=== PATIENT | male | born 1955 | race Caucasian/White ===

== ENCOUNTER 2016-09-29 10:03 | Inpatient (IN) | payer OTHER ==
[~2016-09-29] VITALS: Ht 172.7 cm; Wt 84.5 kg
[~2016-09-29 10:03] MED LIST: RIFAX550 PO; TERA2 PO
[2016-09-29] MEDS ORDERED: SODIUM CHLORIDE 0.9% 1,000 ML IV ONE (10:45)
[2016-09-29] MEDS ORDERED: ONDANSETRON HCL 4 MG/2 ML VIAL IVP ONE (10:45)
[2016-09-29] MEDS ORDERED: KETOROLAC TROMETHAMINE 30 MG/ML VIAL IVP ONE (10:45)
[2016-09-29 10:59] LABS: APPEARANCE,URINE CLEAR (CLEAR); GLUCOSE, URINE (UA) NEGATIVE (NEGATIVE); KETONES,URINE TRACE mg/dL (NEGATIVE); LEUKOCYTE ESTERASE ,URINE SMALL (NEGATIVE); OCCULT BLOOD,URINE NEGATIVE (NEGATIVE); PROTEIN,URINE TRACE (NEGATIVE)
[2016-09-29 11:29] LABS: RBC,URINE 0-2 /HPF (0-2); SQUAMOUS EPITHELIAL CELL,UR Few /LPF (None Seen); WBC,URINE 0-2 /HPF (0-5)
[2016-09-29 11:31] LABS: BASOPHILS % (AUTO) 0.1 % (0.0-2.0); EOSINOPHILS % (AUTO) 0.3 % (1.0-6.0); HEMATOCRIT 32.9 % (41-53); HEMOGLOBIN 10.6 g/dL (13.5-17.5); LYMPHOCYTES # (AUTO) 3.3 K/uL (1.0-4.8); LYMPHOCYTES % (AUTO) 36.3 % (22.0-44.0); MEAN CORPUSCULAR HEMOGLOBIN 31.1 pg (26.0-34.0); MEAN CORPUSCULAR HGB CONC 32.3 G/dL (31.0-37.0); MEAN CORPUSCULAR VOLUME 96 fL (80-100); MONOCYTES # (AUTO) 1.3 K/uL (0.1-1.0); MONOCYTES % (AUTO) 14.2 % (2.0-9.0); NEUTROPHILS # (AUTO) 4.4 K/uL (1.8-7.7); NEUTROPHILS % (AUTO) 49.1 % (40.0-70.0); PLATELET COUNT (AUTO) 126 K/uL (150-450); RED BLOOD CELL COUNT(AUTO) 3.42 MIL/uL (4.50-5.90); RED CELL DISTRIBUTION WIDTH 18.5 % (11.5-14.5)
[2016-09-29 11:32] LABS: RBC MORPHOLOGY COMMENT ABNORMAL RBC MORPH
[2016-09-29 11:34] LABS: INR 1.4 (0.9-1.1); PROTHROMBIN TIME 14.4 SEC (9.4-11.6)
[2016-09-29 11:42] LABS: ALANINE AMINOTRANSFERASE 35 U/L (12-78); ANION GAP 9 mmol/L (8-16); ASPARTATE AMINOTRANSFERASE 119 U/L (15-37); BILIRUBIN,TOTAL 5.3 mg/dL (0.1-1.0); CALCIUM, TOTAL 7.3 mg/dL (8.8-10.5); CARBON DIOXIDE 25 mmol/L (22-29); CHLORIDE 99 mmol/L (98-107); CREATININE 0.75 mg/dL (0.60-1.30); GLOMERULAR FILTR. RATE CALC > 60 mL/min (>60); LACTIC ACID 1.4 mmol/L (0.4-2.0); SODIUM SERUM 133 mmol/L (136-145); TOTAL PROTEIN, SERUM 6.8 g/dL (6.4-8.2); UREA NITROGEN, BLOOD 6 mg/dL (7-18)
[2016-09-29 11:45] LABS: POTASSIUM 2.9 mmol/L (3.5-5.1)
[2016-09-29 12:15] LABS: PROCALCITONIN (PCT) 0.32 ng/mL (<0.50)
[2016-09-29] MEDS ORDERED: OSELTAMIVIR PHOSPHATE 75 MG CAPSULE PO ONE (12:30)
[2016-09-29] MEDS ORDERED: LACTULOSE 20 GM/30 ML SOLUTION UDCUP PO ONE (12:30)
[2016-09-29] MEDS ORDERED: MORPHINE SULFATE 2 MG/ML SYRINGE IVP ONE (12:30)
[2016-09-29] MEDS: POTASSIUM CHL 10 MEQ/WATER 50 ML IV SCH ×4 (12:45→17:10)
[2016-09-29] MEDS ORDERED: ONDANSETRON HCL 4 MG/2 ML VIAL IVP PRN ×2 (13:30→16:15)
[2016-09-29 14:25] LABS: INFLUENZA TYPE B NEGATIVE FOR TYPE B (NEGATIVE)
[2016-09-29] MEDS ORDERED: BISACODYL 10 MG RECTAL RECTAL SUPPOSITORY PR PRN (16:15)
[2016-09-29] MEDS ORDERED: MAGNESIUM HYDROXIDE SUSPENSION 30 ML UDCUP PO PRN (16:15)
[2016-09-29] MEDS ORDERED: ZOLPIDEM TARTRATE 5 MG TABLET PO PRN (16:15)
[2016-09-29] MEDS ORDERED: LORazepam 2 MG/ML VIAL IVP PRN (16:15)
[2016-09-29] MEDS ORDERED: ALBUTEROL SULFATE 2.5 MG/0.5 ML NEB SOLUTION NEB PRN (16:15)
[2016-09-29] MEDS ORDERED: ACETAMINOPHEN 325 MG TABLET PO PRN (16:15)
[2016-09-29] MEDS ORDERED: IPRATROPIUM BROMIDE 0.5 MG/2.5 ML NEB SOLUTION NEB PRN (16:15)
[2016-09-29 16:38] VITALS: BP 147/86
[2016-09-29] MEDS: MORPHINE SULFATE 2 MG/ML SYRINGE IVP PRN ×2 (17:10→20:58)
[2016-09-29] MEDS: ChlordiazePOXIDE HCL 25 MG CAPSULE PO SCH ×2 (18:37→23:33)
[2016-09-29 19:58] VITALS: BP 130/72
[2016-09-29] MEDS: DOCUSATE SODIUM 100 MG CAPSULE PO SCH (20:52)
[2016-09-29 23:14] VITALS: BP 141/79
[2016-09-29] MEDS ORDERED: POTASSIUM CHLORIDE 20 MEQ ER TABLET PO ONE (23:45)
[2016-09-30] MEDS: MORPHINE SULFATE 2 MG/ML SYRINGE IVP PRN ×4 (00:21→12:17)
[2016-09-30 04:33] VITALS: BP 134/76
[2016-09-30] MEDS: ChlordiazePOXIDE HCL 25 MG CAPSULE PO SCH ×2 (05:08→12:16)
[2016-09-30 07:10] VITALS: BP 163/92
[2016-09-30] MEDS: DOCUSATE SODIUM 100 MG CAPSULE PO SCH ×3 (09:00→20:45)
[2016-09-30] MEDS: PANTOPRAZOLE SODIUM 40 MG/VIAL IVP SCH (09:14)
[2016-09-30] MEDS: MULTIVITAMINS, THERAPEUTIC TABLET PO SCH (09:15)
[2016-09-30] MEDS: FOLIC ACID 1 MG TABLET PO SCH (09:15)
[2016-09-30 12:04] VITALS: BP 129/78
[2016-09-30] MEDS: THIAMINE HCL 100 MG TABLET PO SCH (12:16)
[2016-09-30 14:50] VITALS: BP 150/63
[2016-09-30 18:02] LABS: APPEARANCE,URINE CLEAR (CLEAR); GLUCOSE, URINE (UA) NEGATIVE (NEGATIVE); KETONES,URINE TRACE mg/dL (NEGATIVE); LEUKOCYTE ESTERASE ,URINE SMALL (NEGATIVE); OCCULT BLOOD,URINE NEGATIVE (NEGATIVE); PROTEIN,URINE NEGATIVE (NEGATIVE)
[2016-09-30 18:15] LABS: ADD UA MICROSCOPIC YES
[2016-09-30 18:20] LABS: RBC,URINE 0-2 /HPF (0-2); SQUAMOUS EPITHELIAL CELL,UR Few /LPF (None Seen)
[2016-09-30 19:43] VITALS: BP 145/69
[2016-09-30] MEDS: HYDROCODONE/ACETAMINOPHEN 5-325 MG TABLET PO PRN (20:42)
[2016-09-30 23:22] VITALS: BP 127/70
[2016-10-01 04:36] VITALS: BP 118/59
[2016-10-01 07:04] VITALS: BP_SYST 131; BP_SYST 161; BP_DIAS 66
[2016-10-01] MEDS: FOLIC ACID 1 MG TABLET PO SCH (10:23)
[2016-10-01] MEDS: THIAMINE HCL 100 MG TABLET PO SCH (10:23)
[2016-10-01] MEDS: MULTIVITAMINS, THERAPEUTIC TABLET PO SCH (10:24)
[2016-10-01] MEDS: HYDROCODONE/ACETAMINOPHEN 5-325 MG TABLET PO PRN ×3 (10:25→21:08)
[2016-10-01] MEDS: PANTOPRAZOLE SODIUM 40 MG/VIAL IVP SCH (11:04)
[2016-10-01 11:16] VITALS: BP 110/62
[2016-10-01 11:50] LABS: HEMATOCRIT 30.8 % (41-53); HEMOGLOBIN 10.1 g/dL (13.5-17.5); MEAN CORPUSCULAR HEMOGLOBIN 31.6 pg (26.0-34.0); MEAN CORPUSCULAR HGB CONC 32.7 G/dL (31.0-37.0); MEAN CORPUSCULAR VOLUME 97 fL (80-100); PLATELET COUNT (AUTO) 121 K/uL (150-450); RED BLOOD CELL COUNT(AUTO) 3.19 MIL/uL (4.50-5.90); RED CELL DISTRIBUTION WIDTH 18.4 % (11.5-14.5); WHITE BLOOD COUNT (AUTO) 8.9 K/uL (4.5-11.0)
[2016-10-01 12:07] LABS: ALANINE AMINOTRANSFERASE 37 U/L (12-78); ANION GAP 7 mmol/L (8-16); ASPARTATE AMINOTRANSFERASE 123 U/L (15-37); BILIRUBIN,TOTAL 6.2 mg/dL (0.1-1.0); CALCIUM, TOTAL 8.1 mg/dL (8.8-10.5); CARBON DIOXIDE 24 mmol/L (22-29); CHLORIDE 99 mmol/L (98-107); CREATININE 0.71 mg/dL (0.60-1.30); GLOMERULAR FILTR. RATE CALC > 60 mL/min (>60); POTASSIUM 3.3 mmol/L (3.5-5.1); SODIUM SERUM 130 mmol/L (136-145); TOTAL PROTEIN, SERUM 6.6 g/dL (6.4-8.2); UREA NITROGEN, BLOOD 7 mg/dL (7-18)
[2016-10-01] MEDS ORDERED: MAGNESIUM SULFATE 4 GM/WATER 100 ML IV PRN (12:30)
[2016-10-01] MEDS ORDERED: MAGNESIUM SULFATE 2 GM in DEXTROSE 5%-WATER 50 ML IV PRN (12:30)
[2016-10-01 12:33] LABS: BAND NEUTROPHILS % (MANUAL) 5 % (1-5); LYMPHOCYTES % (MANUAL) 20 % (22-44); TOTAL CELLS COUNTED 100
[2016-10-01 12:35] LABS: RBC MORPHOLOGY COMMENT ABNORMAL RBC MORPH
[2016-10-01] MEDS ORDERED: IOVERSOL 350 MG/ML 100 ML VIAL ONE ×2 (12:40→17:51)
[2016-10-01] MEDS ORDERED: SODIUM CHLORIDE 0.9% 100 ML ONE ×2 (12:40→17:52)
[2016-10-01] MEDS ORDERED: BARIUM SULFATE 0.1% SUSPENSION 450 ML BOTTLE ONE (12:40)
[2016-10-01] MEDS ORDERED: CefTRIAXone 1 GM/DEXTROSE 50 ML IV SCH (13:00)
[2016-10-01] MEDS ORDERED: AZITHROMYCIN 250 MG in SODIUM CHLORIDE 0.9% 150 ML IV SCH (14:00)
[2016-10-01] MEDS: LACTULOSE 20 GM/30 ML SOLUTION UDCUP PO SCH ×3 (14:50→21:07)
[2016-10-01] MEDS: LEVOFLOXACIN 250 MG TABLET PO SCH (14:51)
[2016-10-01 15:36] VITALS: BP 123/71
[2016-10-01] MEDS: POTASSIUM CHLORIDE 20 MEQ ER TABLET PO PRN (15:56)
[2016-10-01] MEDS ORDERED: IOVERSOL 350 MG/ML 50 ML VIAL ONE (17:52)
[2016-10-01 19:59] VITALS: BP 110/77
[2016-10-01] MEDS: DOCUSATE SODIUM 100 MG CAPSULE PO SCH (21:00)
[2016-10-01] MEDS: RIFAXIMIN 550 MG TABLET PO SCH (21:07)
[2016-10-02 00:24] VITALS: BP 113/67
[2016-10-02 03:29] VITALS: BP 110/59
[2016-10-02] MEDS: PANTOPRAZOLE SODIUM 40 MG/VIAL IVP SCH (07:59)
[2016-10-02] MEDS: LACTULOSE 20 GM/30 ML SOLUTION UDCUP PO SCH ×4 (07:59→20:31)
[2016-10-02] MEDS: MULTIVITAMINS, THERAPEUTIC TABLET PO SCH (07:59)
[2016-10-02] MEDS: FOLIC ACID 1 MG TABLET PO SCH (07:59)
[2016-10-02] MEDS: THIAMINE HCL 100 MG TABLET PO SCH (08:00)
[2016-10-02] MEDS: LEVOFLOXACIN 250 MG TABLET PO SCH (08:00)
[2016-10-02] MEDS: DOCUSATE SODIUM 100 MG CAPSULE PO SCH ×2 (08:00→20:31)
[2016-10-02] MEDS: RIFAXIMIN 550 MG TABLET PO SCH ×2 (08:00→20:30)
[2016-10-02] MEDS: HYDROCODONE/ACETAMINOPHEN 5-325 MG TABLET PO PRN ×3 (08:05→20:31)
[2016-10-02 11:16] VITALS: BP 91/62
[2016-10-02] MEDS: MAGNESIUM OXIDE 400 MG TABLET PO PRN (12:53)
[2016-10-02 15:15] VITALS: BP 101/60
[2016-10-02 15:20] LABS: HEMOGLOBIN 10.4 g/dL (13.5-17.5); MEAN CORPUSCULAR HEMOGLOBIN 31.8 pg (26.0-34.0); MEAN CORPUSCULAR HGB CONC 32.6 G/dL (31.0-37.0); MEAN CORPUSCULAR VOLUME 98 fL (80-100); PLATELET COUNT (AUTO) 133 K/uL (150-450); RED BLOOD CELL COUNT(AUTO) 3.28 MIL/uL (4.50-5.90); RED CELL DISTRIBUTION WIDTH 19.1 % (11.5-14.5); WHITE BLOOD COUNT (AUTO) 8.1 K/uL (4.5-11.0)
[2016-10-02 15:31] LABS: ANION GAP 7 mmol/L (8-16); CALCIUM, TOTAL 8.2 mg/dL (8.8-10.5); CARBON DIOXIDE 26 mmol/L (22-29); CHLORIDE 102 mmol/L (98-107); CREATININE 0.88 mg/dL (0.60-1.30); GLOMERULAR FILTR. RATE CALC > 60 mL/min (>60); POTASSIUM 3.4 mmol/L (3.5-5.1); SODIUM SERUM 135 mmol/L (136-145); UREA NITROGEN, BLOOD 7 mg/dL (7-18)
[2016-10-02 15:40] LABS: BAND NEUTROPHILS % (MANUAL) 14 % (1-5); LYMPHOCYTES % (MANUAL) 30 % (22-44); REACTIVE LYMPHOCYTES 1 % (0-0); TOTAL CELLS COUNTED 100
[2016-10-02 15:41] LABS: RBC MORPHOLOGY COMMENT ABNORMAL RBC MORPH
[2016-10-02 15:43] LABS: ALANINE AMINOTRANSFERASE 40 U/L (12-78); ASPARTATE AMINOTRANSFERASE 127 U/L (15-37); BILIRUBIN,TOTAL 6.5 mg/dL (0.1-1.0); TOTAL PROTEIN, SERUM 6.6 g/dL (6.4-8.2)
[2016-10-02] MEDS: POTASSIUM CHLORIDE 20 MEQ ER TABLET PO PRN (18:10)
[2016-10-02 20:18] VITALS: BP 101/66
[2016-10-02] MEDS: OSELTAMIVIR PHOSPHATE 75 MG CAPSULE PO SCH (20:30)
[2016-10-03] VITALS (7 sets, daily range): BP systolic 101–119; BP diastolic 61–74
[2016-10-03] MEDS: HYDROCODONE/ACETAMINOPHEN 5-325 MG TABLET PO PRN ×3 (06:45→20:25)
[2016-10-03 07:11] LABS: HEMATOCRIT 30.2 % (41-53); MEAN CORPUSCULAR VOLUME 97 fL (80-100); PLATELET COUNT (AUTO) 136 K/uL (150-450); RED BLOOD CELL COUNT(AUTO) 3.11 MIL/uL (4.50-5.90); RED CELL DISTRIBUTION WIDTH 18.8 % (11.5-14.5); WHITE BLOOD COUNT (AUTO) 7.3 K/uL (4.5-11.0)
[2016-10-03 07:50] LABS: ALANINE AMINOTRANSFERASE 35 U/L (12-78); ALBUMIN 1.9 g/dL (3.4-5.0); ANION GAP 5 mmol/L (8-16); ASPARTATE AMINOTRANSFERASE 113 U/L (15-37); BILIRUBIN,TOTAL 4.9 mg/dL (0.1-1.0); CALCIUM, TOTAL 8.3 mg/dL (8.8-10.5); CARBON DIOXIDE 27 mmol/L (22-29); CHLORIDE 106 mmol/L (98-107); CREATININE 0.86 mg/dL (0.60-1.30); GLOMERULAR FILTR. RATE CALC > 60 mL/min (>60); POTASSIUM 3.9 mmol/L (3.5-5.1); SODIUM SERUM 138 mmol/L (136-145); TOTAL PROTEIN, SERUM 6.3 g/dL (6.4-8.2); UREA NITROGEN, BLOOD 8 mg/dL (7-18)
[2016-10-03] MEDS: MULTIVITAMINS, THERAPEUTIC TABLET PO SCH (08:24)
[2016-10-03] MEDS: PANTOPRAZOLE SODIUM 40 MG/VIAL IVP SCH (08:24)
[2016-10-03] MEDS: THIAMINE HCL 100 MG TABLET PO SCH (08:24)
[2016-10-03] MEDS: RIFAXIMIN 550 MG TABLET PO SCH ×2 (08:24→20:25)
[2016-10-03] MEDS: FOLIC ACID 1 MG TABLET PO SCH (08:24)
[2016-10-03] MEDS: DOCUSATE SODIUM 100 MG CAPSULE PO SCH ×2 (08:24→20:26)
[2016-10-03] MEDS: LACTULOSE 20 GM/30 ML SOLUTION UDCUP PO SCH ×4 (08:25→20:25)
[2016-10-03] MEDS: LEVOFLOXACIN 250 MG TABLET PO SCH (08:25)
[2016-10-03] MEDS: OSELTAMIVIR PHOSPHATE 75 MG CAPSULE PO SCH ×2 (12:15→20:25)
[2016-10-03 12:26] LABS: BAND NEUTROPHILS % (MANUAL) 1 % (1-5); LYMPHOCYTES % (MANUAL) 27 % (22-44); RBC MORPHOLOGY COMMENT ABNORMAL R; TOTAL CELLS COUNTED 100
[2016-10-03] MEDS: MAGNESIUM OXIDE 400 MG TABLET PO PRN (20:25)
[2016-10-04 02:21] LABS: HEPATITIS Bs ANTIGEN SCREEN P Negative (Negative); HEPATITIS C AB SCREEN >11.0 s/co ratio (0.0-0.9)
[2016-10-04 05:05] VITALS: BP 101/66
[2016-10-04 06:28] LABS: HEMATOCRIT 29.6 % (41-53); HEMOGLOBIN 9.6 g/dL (13.5-17.5); MEAN CORPUSCULAR HEMOGLOBIN 31.6 pg (26.0-34.0); MEAN CORPUSCULAR HGB CONC 32.3 G/dL (31.0-37.0); MEAN CORPUSCULAR VOLUME 98 fL (80-100); PLATELET COUNT (AUTO) 143 K/uL (150-450); RED BLOOD CELL COUNT(AUTO) 3.03 MIL/uL (4.50-5.90); RED CELL DISTRIBUTION WIDTH 19.3 % (11.5-14.5); WHITE BLOOD COUNT (AUTO) 7.2 K/uL (4.5-11.0)
[2016-10-04 07:07] LABS: ALANINE AMINOTRANSFERASE 32 U/L (12-78); ALBUMIN 1.8 g/dL (3.4-5.0); ANION GAP 9 mmol/L (8-16); ASPARTATE AMINOTRANSFERASE 98 U/L (15-37); BILIRUBIN,TOTAL 3.8 mg/dL (0.1-1.0); CARBON DIOXIDE 24 mmol/L (22-29); CHLORIDE 102 mmol/L (98-107); CREATININE 0.86 mg/dL (0.60-1.30); GLOMERULAR FILTR. RATE CALC > 60 mL/min (>60); POTASSIUM 3.8 mmol/L (3.5-5.1); SODIUM SERUM 135 mmol/L (136-145); UREA NITROGEN, BLOOD 7 mg/dL (7-18)
[2016-10-04 07:29] VITALS: BP 93/50
[2016-10-04] MEDS: FOLIC ACID 1 MG TABLET PO SCH (08:16)
[2016-10-04] MEDS: LACTULOSE 20 GM/30 ML SOLUTION UDCUP PO SCH ×3 (08:16→16:42)
[2016-10-04] MEDS: RIFAXIMIN 550 MG TABLET PO SCH (08:16)
[2016-10-04] MEDS: PANTOPRAZOLE SODIUM 40 MG/VIAL IVP SCH (08:16)
[2016-10-04] MEDS: HYDROCODONE/ACETAMINOPHEN 5-325 MG TABLET PO PRN ×2 (08:16→16:47)
[2016-10-04] MEDS: LEVOFLOXACIN 250 MG TABLET PO SCH (08:16)
[2016-10-04] MEDS: MULTIVITAMINS, THERAPEUTIC TABLET PO SCH (08:16)
[2016-10-04] MEDS: THIAMINE HCL 100 MG TABLET PO SCH (08:16)
[2016-10-04] MEDS: DOCUSATE SODIUM 100 MG CAPSULE PO SCH (08:17)
[2016-10-04 10:09] LABS: BAND NEUTROPHILS % (MANUAL) 1 % (1-5); LYMPHOCYTES % (MANUAL) 26 % (22-44); TOTAL CELLS COUNTED 100
[2016-10-04 10:10] LABS: RBC MORPHOLOGY COMMENT ABNORMAL R
[2016-10-04 11:26] VITALS: BP 109/60
[2016-10-04 16:04] VITALS: BP 112/64
[2016-10-04] MEDS ORDERED: LACT30L PO (18:16)
[2016-10-04] MEDS ORDERED: LEVO250 PO (18:17)
== END 2016-10-04 18:50 | disposition home or self-care (01) | DRG 720 ==
LOC: EMS 10:05 → 6N 13:27 → UNDODISIN 14:12
PROVIDERS: ADMIT Hospitalist; ATTEND Hospitalist
DX: A41.9 Sepsis, unspecified organism (principal); E43 Unspecified severe protein-calorie malnutrition; K70.30 Alcoholic cirrhosis of liver without ascites; J18.9 Pneumonia, unspecified organism; I48.91 Unspecified atrial fibrillation; K72.90 Hepatic failure, unspecified without coma; K92.2 Gastrointestinal hemorrhage, unspecified; J44.9 Chronic obstructive pulmonary disease, unspecified; E78.00 Pure hypercholesterolemia, unspecified; I10 Essential (primary) hypertension; F17.210 Nicotine dependence, cigarettes, uncomplicated; E87.6 Hypokalemia; I25.10 Atherosclerotic heart disease of native coronary artery without angina pectoris; R79.1 Abnormal coagulation profile; N40.0 Benign prostatic hyperplasia without lower urinary tract symptoms; M19.90 Unspecified osteoarthritis, unspecified site; Z91.14 Patient's other noncompliance with medication regimen; Z79.899 Other long term (current) drug therapy; Z68.28 Body mass index [BMI] 28.0-28.9, adult; Z90.49 Acquired absence of other specified parts of digestive tract; Z98.890 Other specified postprocedural states; Z59.0 Homelessness; Z95.5 Presence of coronary angioplasty implant and graft; Z90.81 Acquired absence of spleen; Z86.718 Personal history of other venous thrombosis and embolism
CPT/HCPCS: 70450; 74177; 80074; 82105; 82271; 83605; 83735; 84132; 84145; 87040; 87086; 87804; 93005; 96361; 96374; 96375; 99285; C9113; J0456; J0696; J1885; J2270; J2405; J3475; J3480; J7030; J7050; J7060

== ENCOUNTER 2017-01-25 17:43 | Inpatient (IN) | payer OTHER ==
[~2017-01-25] VITALS: Ht 172.7 cm; Wt 84.6 kg
[~2017-01-25 17:43] MED LIST changes: +LACT30L PO; +LEVO250 PO
[2017-01-25 18:22] LABS: HEMATOCRIT 29.9 % (41-53); HEMOGLOBIN 9.9 g/dL (13.5-17.5); MEAN CORPUSCULAR HEMOGLOBIN 34.4 pg (26.0-34.0); MEAN CORPUSCULAR HGB CONC 33.1 G/dL (31.0-37.0); MEAN CORPUSCULAR VOLUME 104 fL (80-100); PLATELET COUNT (AUTO) 283 K/uL (150-450); RED BLOOD CELL COUNT(AUTO) 2.87 MIL/uL (4.50-5.90); RED CELL DISTRIBUTION WIDTH 18.6 % (11.5-14.5)
[2017-01-25 18:33] LABS: ANION GAP 10 mmol/L (8-16); CALCIUM, TOTAL 7.9 mg/dL (8.8-10.5); CARBON DIOXIDE 26 mmol/L (22-29); CHLORIDE 110 mmol/L (98-107); CREATININE 1.01 mg/dL (0.60-1.30); GLOMERULAR FILTR. RATE CALC > 60 mL/min (>60); POTASSIUM 3.5 mmol/L (3.5-5.1); SODIUM SERUM 146 mmol/L (136-145); UREA NITROGEN, BLOOD 9 mg/dL (7-18)
[2017-01-25 18:39] LABS: ALANINE AMINOTRANSFERASE 31 U/L (12-78); ALBUMIN 2.1 g/dL (3.4-5.0); ASPARTATE AMINOTRANSFERASE 55 U/L (15-37); BILIRUBIN,TOTAL 2.5 mg/dL (0.1-1.0); TOTAL PROTEIN, SERUM 7.9 g/dL (6.4-8.2)
[2017-01-25 18:59] LABS: EOSINOPHILS % (MANUAL) 3 % (1-6); LYMPHOCYTES % (MANUAL) 55 % (22-44); METAMYELOCYTES % 2 % (0-0); MYELOCYTES % 1 % (0-0); TOTAL CELLS COUNTED 100
[2017-01-25 19:00] LABS: RBC MORPHOLOGY COMMENT ABNORMAL R
[2017-01-25] MEDS ORDERED: MAGNESIUM SULFATE 2 GM, MVI, ADULT NO.1 WITH VIT K 10 ML, THIAMINE HCL 100 MG, FOLIC AC... IV ONE ×5 (21:00)
[2017-01-25] MEDS ORDERED: SODIUM CHLORIDE 0.9% 1,000 ML IV ONE (21:00)
[2017-01-25] MEDS ORDERED: FUROSEMIDE 40 MG/4 ML VIAL IVP ONE (21:45)
[2017-01-25] MEDS ORDERED: SPIRONOLACTONE 25 MG TABLET PO ONE (21:45)
[2017-01-25] MEDS ORDERED: LACTULOSE 20 GM/30 ML SOLUTION UDCUP PO ONE (22:45)
[2017-01-25] MEDS ORDERED: ACETAMINOPHEN 325 MG TABLET PO PRN ×2 (23:30)
[2017-01-25] MEDS ORDERED: MORPHINE SULFATE 2 MG/ML SYRINGE IVP PRN (23:30)
[2017-01-25] MEDS ORDERED: OxyCODONE HCL/ACETAMINOPHEN 5-325 MG TABLET PO PRN (23:30)
[2017-01-25] MEDS ORDERED: ONDANSETRON HCL 4 MG/2 ML VIAL IVP PRN ×2 (23:30)
[2017-01-25] MEDS ORDERED: ZOLPIDEM TARTRATE 5 MG TABLET PO PRN (23:30)
[2017-01-25] MEDS ORDERED: BISACODYL 10 MG RECTAL RECTAL SUPPOSITORY PR PRN ×2 (23:30)
[2017-01-25] MEDS ORDERED: IPRATROPIUM BROMIDE 0.5 MG/2.5 ML NEB SOLUTION NEB PRN ×2 (23:30)
[2017-01-25] MEDS ORDERED: MAGNESIUM HYDROXIDE SUSPENSION 30 ML UDCUP PO PRN ×2 (23:30)
[2017-01-25] MEDS ORDERED: ALBUTEROL SULFATE 2.5 MG/0.5 ML NEB SOLUTION NEB PRN ×2 (23:30)
[2017-01-26] VITALS (7 sets, daily range): BP systolic 103–126; BP diastolic 52–72
[2017-01-26] MEDS: HEPARIN SODIUM,PORCINE 5,000 UNITS/ML VIAL SQ SCH ×4 (01:35→23:53)
[2017-01-26] MEDS: HYDROCODONE/ACETAMINOPHEN 5-325 MG TABLET PO PRN (06:19)
[2017-01-26 07:06] LABS: HEMATOCRIT 24.8 % (41-53); HEMOGLOBIN 8.2 g/dL (13.5-17.5); MEAN CORPUSCULAR HGB CONC 33.3 G/dL (31.0-37.0); MEAN CORPUSCULAR VOLUME 102 fL (80-100); PLATELET COUNT (AUTO) 241 K/uL (150-450); RED BLOOD CELL COUNT(AUTO) 2.43 MIL/uL (4.50-5.90); RED CELL DISTRIBUTION WIDTH 18.1 % (11.5-14.5)
[2017-01-26 07:11] LABS: ALANINE AMINOTRANSFERASE 23 U/L (12-78); ALBUMIN 1.7 g/dL (3.4-5.0); ANION GAP 10 mmol/L (8-16); ASPARTATE AMINOTRANSFERASE 47 U/L (15-37); BILIRUBIN,TOTAL 2.3 mg/dL (0.1-1.0); CALCIUM, TOTAL 7.3 mg/dL (8.8-10.5); CARBON DIOXIDE 24 mmol/L (22-29); CHLORIDE 110 mmol/L (98-107); CREATININE 0.69 mg/dL (0.60-1.30); GLOMERULAR FILTR. RATE CALC > 60 mL/min (>60); SODIUM SERUM 144 mmol/L (136-145); TOTAL PROTEIN, SERUM 6.4 g/dL (6.4-8.2); UREA NITROGEN, BLOOD 7 mg/dL (7-18)
[2017-01-26 07:40] LABS: POTASSIUM 2.9 mmol/L (3.5-5.1)
[2017-01-26] MEDS: DOCUSATE SODIUM 100 MG CAPSULE PO SCH ×2 (08:11→20:28)
[2017-01-26] MEDS: MORPHINE SULFATE 2 MG/ML SYRINGE IVP PRN ×4 (08:11→20:20)
[2017-01-26] MEDS: PANTOPRAZOLE SODIUM 40 MG/VIAL IVP SCH (08:11)
[2017-01-26 08:53] LABS: BAND NEUTROPHILS % (MANUAL) 1 % (1-5); EOSINOPHILS % (MANUAL) 3 % (1-6); LYMPHOCYTES % (MANUAL) 55 % (22-44); TOTAL CELLS COUNTED 100
[2017-01-26] MEDS ORDERED: LACTULOSE 20 GM/30 ML SOLUTION UDCUP PO SCH (09:00)
[2017-01-26] MEDS ORDERED: FUROSEMIDE 40 MG/4 ML VIAL IVP ONE (09:00)
[2017-01-26] MEDS ORDERED: ENOXAPARIN SODIUM 40 MG/0.4 ML PF SYRINGE SQ SCH (09:00)
[2017-01-26] MEDS ORDERED: SPIRONOLACTONE 25 MG TABLET PO SCH (09:00)
[2017-01-26] MEDS ORDERED: PANTOPRAZOLE SODIUM 40 MG/VIAL IVP SCH (09:00)
[2017-01-26] MEDS ORDERED: SPIRONOLACTONE 50 MG TABLET PO ONE (09:30)
[2017-01-26] MEDS ORDERED: POTASSIUM CHLORIDE 20 MEQ ER TABLET PO PRN (09:45)
[2017-01-26] MEDS ORDERED: SODIUM CHLORIDE 0.9% 500 ML IV ONE (10:28)
[2017-01-26] MEDS: RIFAXIMIN 550 MG TABLET PO SCH ×2 (10:33→23:54)
[2017-01-26] MEDS: POTASSIUM CHL 10 MEQ/WATER 50 ML IV PRN ×4 (10:38→22:15)
[2017-01-26] MEDS: LACTULOSE 20 GM/30 ML SOLUTION UDCUP PO SCH ×3 (12:00→23:53)
[2017-01-26] MEDS: SPIRONOLACTONE 50 MG TABLET PO SCH (20:20)
[2017-01-27] MEDS ORDERED: SODIUM CHLORIDE 0.9% 250 ML IV ONE (00:04)
[2017-01-27] MEDS: MORPHINE SULFATE 2 MG/ML SYRINGE IVP PRN ×4 (00:05→12:15)
[2017-01-27 05:26] VITALS: BP 119/67
[2017-01-27] MEDS: LACTULOSE 20 GM/30 ML SOLUTION UDCUP PO SCH ×2 (05:55→12:12)
[2017-01-27 08:10] VITALS: BP 105/65
[2017-01-27] MEDS: DOCUSATE SODIUM 100 MG CAPSULE PO SCH (08:25)
[2017-01-27] MEDS: RIFAXIMIN 550 MG TABLET PO SCH (08:25)
[2017-01-27] MEDS: PANTOPRAZOLE SODIUM 40 MG/VIAL IVP SCH (08:26)
[2017-01-27] MEDS: HEPARIN SODIUM,PORCINE 5,000 UNITS/ML VIAL SQ SCH ×2 (08:26→16:04)
[2017-01-27 12:03] VITALS: BP 144/63
[2017-01-27] MEDS: SPIRONOLACTONE 50 MG TABLET PO SCH (12:11)
[2017-01-27] MEDS ORDERED: SPIR50TA PO (14:55)
[2017-01-27] MEDS ORDERED: PERCT PO (14:57)
[2017-01-27] MEDS ORDERED: FURO-152 PO (14:57)
[2017-01-27 15:45] VITALS: BP 127/73
[2017-01-27] MEDS: HYDROCODONE/ACETAMINOPHEN 5-325 MG TABLET PO PRN (16:05)
== END 2017-01-27 17:30 | disposition home or self-care (01) | DRG 279 ==
LOC: EMS 17:51 → 6N 23:14
PROVIDERS: ADMIT Hospitalist; ATTEND Hospitalist
DX: K72.00 Acute and subacute hepatic failure without coma (principal); E43 Unspecified severe protein-calorie malnutrition; E87.0 Hyperosmolality and hypernatremia; E87.8 Other disorders of electrolyte and fluid balance, not elsewhere classified; I48.91 Unspecified atrial fibrillation; J44.9 Chronic obstructive pulmonary disease, unspecified; I10 Essential (primary) hypertension; R07.89 Other chest pain; D64.9 Anemia, unspecified; K70.31 Alcoholic cirrhosis of liver with ascites; E78.00 Pure hypercholesterolemia, unspecified; F17.210 Nicotine dependence, cigarettes, uncomplicated; I25.10 Atherosclerotic heart disease of native coronary artery without angina pectoris; E87.6 Hypokalemia; Z79.899 Other long term (current) drug therapy; Z59.0 Homelessness; Z91.19 Patient's noncompliance with other medical treatment and regimen; Z72.89 Other problems related to lifestyle; Z68.28 Body mass index [BMI] 28.0-28.9, adult
CPT/HCPCS: 84132; 87081; 96365; 96366; 96375; 99285; C9113; G0480; J1644; J1940; J2270; J3411; J3475; J3480; J3490; J7030; J7040; J7050

== ENCOUNTER 2017-01-30 14:10 | Emergency (ER) | payer OTHER ==
[~2017-01-30] VITALS: Ht 167.6 cm; Wt 90.0 kg
[~2017-01-30 14:10] MED LIST changes: +FURO-152 PO; -LEVO250 PO; +PERCT PO; +SPIR50TA PO
[2017-01-30 16:45] LABS: HEMATOCRIT 30.6 % (41-53); HEMOGLOBIN 10.1 g/dL (13.5-17.5); MEAN CORPUSCULAR HEMOGLOBIN 34.1 pg (26.0-34.0); MEAN CORPUSCULAR HGB CONC 32.9 G/dL (31.0-37.0); MEAN CORPUSCULAR VOLUME 104 fL (80-100); PLATELET COUNT (AUTO) 267 K/uL (150-450); RED BLOOD CELL COUNT(AUTO) 2.96 MIL/uL (4.50-5.90); WHITE BLOOD COUNT (AUTO) 9.2 K/uL (4.5-11.0)
[2017-01-30 16:46] LABS: APPEARANCE,URINE CLEAR (CLEAR); GLUCOSE, URINE (UA) NEGATIVE (NEGATIVE); KETONES,URINE NEGATIVE (NEGATIVE); LEUKOCYTE ESTERASE ,URINE NEGATIVE (NEGATIVE); OCCULT BLOOD,URINE SMALL (NEGATIVE); PROTEIN,URINE NEGATIVE (NEGATIVE)
[2017-01-30 16:48] LABS: ADD UA MICROSCOPIC YES; SQUAMOUS EPITHELIAL CELL,UR Rare /LPF (None Seen)
[2017-01-30 17:03] LABS: TROPONIN I 0.02 ng/mL (0.00-0.05)
[2017-01-30 17:11] LABS: ANION GAP 8 mmol/L (8-16); CARBON DIOXIDE 26 mmol/L (22-29); CHLORIDE 109 mmol/L (98-107); CREATININE 0.88 mg/dL (0.60-1.30); GLOMERULAR FILTR. RATE CALC > 60 mL/min (>60); POTASSIUM 3.4 mmol/L (3.5-5.1); SODIUM SERUM 143 mmol/L (136-145); UREA NITROGEN, BLOOD 8 mg/dL (7-18)
[2017-01-30 17:14] LABS: INR 1.3 (0.9-1.1); PROTHROMBIN TIME 13.7 SEC (9.4-11.6)
[2017-01-30 17:18] LABS: ALANINE AMINOTRANSFERASE 23 U/L (12-78); ALBUMIN 2.1 g/dL (3.4-5.0); ASPARTATE AMINOTRANSFERASE 42 U/L (15-37); BILIRUBIN,TOTAL 2.3 mg/dL (0.1-1.0); CREATINE KINASE, TOTAL 39 U/L (39-308)
[2017-01-30 17:24] LABS: B-TYPE NATRIURETIC PEPTIDE 46 pg/mL (0-100)
[2017-01-30 17:35] LABS: BAND NEUTROPHILS % (MANUAL) 2 % (1-5); BASOPHILS % (MANUAL) 1 % (0-2); EOSINOPHILS % (MANUAL) 3 % (1-6); LYMPHOCYTES % (MANUAL) 51 % (22-44); REACTIVE LYMPHOCYTES 2 % (0-0); TOTAL CELLS COUNTED 100
[2017-01-30 17:44] LABS: RBC MORPHOLOGY COMMENT ABNORMAL RBC MORPH
[2017-01-30 20:29] VITALS: BP 123/66
== END 2017-01-30 20:30 | disposition home or self-care (01) ==
LOC: EMS 14:11
DX: R07.9 Chest pain, unspecified (principal); F17.210 Nicotine dependence, cigarettes, uncomplicated; I25.10 Atherosclerotic heart disease of native coronary artery without angina pectoris; I48.91 Unspecified atrial fibrillation; J44.9 Chronic obstructive pulmonary disease, unspecified; E78.00 Pure hypercholesterolemia, unspecified; I10 Essential (primary) hypertension; Z86.73 Personal history of transient ischemic attack (TIA), and cerebral infarction without residual deficits
CPT/HCPCS: 36415; 71010; 80053; 80307; 81001; 82140; 82550; 83880; 84484; 85025; 85610; 85730; 93005; 99285; G0480

== ENCOUNTER 2017-02-03 17:26 | Emergency (ER) | payer OTHER ==
[~2017-02-03] VITALS: Ht 172.7 cm; Wt 81.8 kg
[2017-02-03 19:15] LABS: BASOPHILS % (AUTO) 2.4 % (0.0-2.0); EOSINOPHILS % (AUTO) 0.5 % (1.0-6.0); HEMATOCRIT 29.6 % (41-53); HEMOGLOBIN 9.9 g/dL (13.5-17.5); LYMPHOCYTES # (AUTO) 4.2 K/uL (1.0-4.8); LYMPHOCYTES % (AUTO) 48.1 % (22.0-44.0); MEAN CORPUSCULAR HEMOGLOBIN 33.4 pg (26.0-34.0); MEAN CORPUSCULAR HGB CONC 33.5 G/dL (31.0-37.0); MEAN CORPUSCULAR VOLUME 100 fL (80-100); MONOCYTES # (AUTO) 1.6 K/uL (0.1-1.0); MONOCYTES % (AUTO) 17.9 % (2.0-9.0); NEUTROPHILS # (AUTO) 2.7 K/uL (1.8-7.7); NEUTROPHILS % (AUTO) 31.1 % (40.0-70.0); PLATELET COUNT (AUTO) 194 K/uL (150-450); RBC MORPHOLOGY COMMENT ABNORMAL RBC MORPH; RED BLOOD CELL COUNT(AUTO) 2.98 MIL/uL (4.50-5.90); RED CELL DISTRIBUTION WIDTH 18.6 % (11.5-14.5); WHITE BLOOD COUNT (AUTO) 8.8 K/uL (4.5-11.0)
[2017-02-03 19:27] LABS: ANION GAP 15 mmol/L (8-16); CARBON DIOXIDE 19 mmol/L (22-29); CHLORIDE 102 mmol/L (98-107); CREATININE 1.11 mg/dL (0.60-1.30); GLOMERULAR FILTR. RATE CALC > 60 mL/min (>60); SODIUM SERUM 136 mmol/L (136-145); UREA NITROGEN, BLOOD 6 mg/dL (7-18)
[2017-02-03 19:28] LABS: ALANINE AMINOTRANSFERASE 20 U/L (12-78); ALBUMIN 1.9 g/dL (3.4-5.0); ASPARTATE AMINOTRANSFERASE 42 U/L (15-37); BILIRUBIN,TOTAL 3.1 mg/dL (0.1-1.0); TOTAL PROTEIN, SERUM 7.3 g/dL (6.4-8.2)
[2017-02-03 19:31] LABS: POTASSIUM 2.6 mmol/L (3.5-5.1)
[2017-02-03] MEDS ORDERED: PANTOPRAZOLE SODIUM 40 MG/VIAL IVP ONE (19:45)
[2017-02-03] MEDS ORDERED: IBUPROFEN 400 MG TABLET PO ONE (20:00)
[2017-02-03] MEDS: POTASSIUM CHL 10 MEQ/WATER 50 ML IV SCH ×4 (20:20→21:02)
[2017-02-03] MEDS ORDERED: POTASSIUM CHLORIDE 20 MEQ ER TABLET PO ONE (21:15)
[2017-02-03 21:21] LABS: APPEARANCE,URINE CLEAR (CLEAR); GLUCOSE, URINE (UA) NEGATIVE (NEGATIVE); KETONES,URINE NEGATIVE (NEGATIVE); LEUKOCYTE ESTERASE ,URINE TRACE (NEGATIVE); OCCULT BLOOD,URINE NEGATIVE (NEGATIVE); PH,URINE 7.5 (5.0-8.0); PROTEIN,URINE NEGATIVE (NEGATIVE)
[2017-02-03 21:22] LABS: ADD UA MICROSCOPIC YES
[2017-02-03 21:28] LABS: RBC,URINE None Seen /HPF (0-2); SQUAMOUS EPITHELIAL CELL,UR Rare /LPF (None Seen)
[2017-02-03 22:01] VITALS: BP 120/68
== END 2017-02-03 22:07 | disposition home or self-care (01) ==
LOC: EMS 17:28
DX: F10.129 Alcohol abuse with intoxication, unspecified (principal); E87.6 Hypokalemia; I25.10 Atherosclerotic heart disease of native coronary artery without angina pectoris; I48.91 Unspecified atrial fibrillation; J44.9 Chronic obstructive pulmonary disease, unspecified; I10 Essential (primary) hypertension; E78.00 Pure hypercholesterolemia, unspecified; I25.2 Old myocardial infarction; F17.210 Nicotine dependence, cigarettes, uncomplicated; Y90.7 Blood alcohol level of 200-239 mg/100 ml
CPT/HCPCS: 36415; 71010; 80053; 80307; 81001; 83690; 84484; 85025; 93005; 96365; 99285; C9113; G0480; J3480